=== PATIENT | male | born 1935 | race Caucasian/White ===

== ENCOUNTER → 2018-08-22 | Outpatient (CLI) | payer MEDICARE ==
[~2018-08-22] MED LIST: ASCO125T PO; ASPI-1236 PO; BETA10003 PO; BUTA1CAP2; DUTA0.5C2 PO; ERGO400T3 PO; LIDOCAINE HCL 1% 20ML VIAL (Pyxis) INJ ONE; LORA10TA PO; OMEG500C PO; PREG50CA PO; PRIM50TA PO; SELE200T26 PO; SIMV20TA2 PO; TAMS-11 PO; TOPXL5 PO; UBID100T7 PO; VALS80TA2 PO; VIC; VITA-290 PO; VITAMIN E PO; ZINC50TA62 PO; [UNRECOGNIZED DRUG - CODE] PO
== END | disposition home or self-care (01) ==
LOC: NM 08:20
PROVIDERS: ATTEND Neurological Surgery
DX: R51 Headache (principal); I10 Essential (primary) hypertension; E78.5 Hyperlipidemia, unspecified
CPT/HCPCS: 62270; 77003; 78630; A9548; J3490

== ENCOUNTER 2018-10-24 12:35 | Inpatient (IN) | payer MEDICARE ==
[~2018-10-24] VITALS: Ht 175.3 cm; Wt 80.7 kg
[~2018-10-24 12:35] MED LIST changes: -LIDOCAINE HCL 1% 20ML VIAL (Pyxis) INJ ONE
[2018-10-24] MEDS ORDERED: SODIUM CHLORIDE 0.9% 1,000 ML IV ONE (14:06)
[2018-10-24 14:58] LABS: BASOPHILS % 0.3 % (0.0-2.0); EOSINOPHILS % 2.2 % (0.0-5.0); HEMATOCRIT. 43.6 % (42.0-52.0); HEMOGLOBIN. 15.1 g/dL (14.0-18.0); MEAN CORPUSCULAR HEMOGLOBIN 32.1 pg (28.0-32.0); MEAN CORPUSCULAR VOLUME 92.7 fL (80.0-94.0); MEAN PLATELET VOLUME 7.3 fl (7.4-10.4); NEUTROPHILS % 66.5 % (40.0-76.0); PLATELET 142 x1000/uL (130-400); RED CELL DISTRIBUTION WIDTH 13.3 % (11.6-14.6)
[2018-10-24 15:03] LABS: CHLORIDE 107 mEq/L (98-107)
[2018-10-24 15:04] LABS: PARTIAL THROMBOPLASTIN TIME 26.9 sec (23.4-31.0); PROTHROMBIN TIME 10.5 sec (9.1-11.1)
[2018-10-24] MEDS ORDERED: DEXT 5%/LACTATED RINGERS 1,000 ML IV SCH (16:45)
[2018-10-24] MEDS ORDERED: HYDROCODONE/ACETAMINOPHEN 5/325MG TABLET PO ONE (17:15)
[2018-10-24 18:40] LABS: CLARITY URINE CLEAR (CLEAR); COLOR URINE YELLOW (YELLOW); KETONES URINE NEGATIVE (NEGATIVE); LEUKOCYTE ESTERASE URINE 1+ (NEGATIVE); NITRITE URINE NEGATIVE (NEGATIVE); OCCULT BLOOD URINE NEGATIVE (NEGATIVE); PROTEIN URINE NEGATIVE (NEGATIVE); SPECIFIC GRAVITY URINE 1.018 (1.005-1.030); UROBILINOGEN URINE 0.2 E.U./dL (0.2-1.0)
[2018-10-25] VITALS (84 sets, daily range): BP systolic 89–190; BP diastolic 39–127
[2018-10-25] MEDS ORDERED: METOPROLOL TARTRATE 50MG TABLET PO SCH ×2 (00:06→09:00)
[2018-10-25] MEDS: DEXT 5%/0.45% NACL 1000ML 1,000 ML IV SCH ×2 (03:22→13:10)
[2018-10-25] MEDS ORDERED: BACITRACIN 15GM TUBE TOP ONE ×2 (06:31→09:33)
[2018-10-25] MEDS ORDERED: POVIDONE-IODINE OINT 28.4GM TOP ONE (06:31)
[2018-10-25] MEDS ORDERED: GELATIN SPONGE,ABSORBABLE 12-7MM SPONGE ONE (06:31)
[2018-10-25] MEDS ORDERED: THROMBIN (BOVINE) 5000 UNITS/VIAL TOP ONE (06:32)
[2018-10-25] MEDS ORDERED: LIDOCAINE HCL/EPINEPHRINE 1%-EPI 1:100,000 20 ML VIAL ONE (06:32)
[2018-10-25] MEDS ORDERED: BACITRACIN 50,000 UNITS/VIAL ONE (06:33)
[2018-10-25] MEDS ORDERED: ROCURONIUM BROMIDE 10MG/ML VIAL 5ML IV ONE ×2 (06:52→08:47)
[2018-10-25] MEDS ORDERED: FENTANYL CITRATE/PF 50MCG/ML 2ML VIAL ONE ×2 (06:52→08:42)
[2018-10-25] MEDS ORDERED: PROPOFOL 200MG/20ML VIAL IV ONE ×3 (06:52→09:16)
[2018-10-25] MEDS ORDERED: PHENYLEPHRINE HCL 10 MG/ML 1ML (IV VIAL) IV ONE (06:57)
[2018-10-25] MEDS ORDERED: LEVETIRACETAM 500 MG in SODIUM CHLORIDE 0.9% 100 ML IV SCH (07:30)
[2018-10-25] MEDS ORDERED: GLYCOPYRROLATE 0.2 MG/ML 2ML VIAL ONE ×2 (08:36→09:58)
[2018-10-25] MEDS ORDERED: ASPIRIN 81MG TABLET PO SCH (09:00)
[2018-10-25] MEDS: CARBIDOPA/LEVODOPA 25/100MG TABLET CR PO SCH ×3 (10:00→17:00)
[2018-10-25] MEDS: LOSARTAN POTASSIUM 25 MG TABLET PO SCH (10:00)
[2018-10-25] MEDS: DONEPEZIL HCL 10MG TABLET PO SCH (10:00)
[2018-10-25] MEDS: PRIMIDONE 50MG TABLET PO SCH (10:00)
[2018-10-25] MEDS: DUTASTERIDE 0.5MG CAPSULE PO SCH (10:00)
[2018-10-25] MEDS: NICARDIPINE 100 MG in SODIUM CHLORIDE 0.9% 60 ML IV PRN (10:38)
[2018-10-25] MEDS: MORPHINE SULFATE 4 MG/ML CPJ (NOT FOR IM USE) IV PRN ×4 (10:41→22:05)
[2018-10-25] MEDS: CEFAZOLIN 1000MG PREMIX 50 ML IV SCH ×2 (13:06→23:16)
[2018-10-25] MEDS ORDERED: CEFAZOLIN SODIUM 1000MG/VIAL IV SCH (14:00)
[2018-10-25] MEDS ORDERED: FAMOTIDINE 20MG/2ML VIAL IV NR (16:30)
[2018-10-25 16:45] LABS: HEMATOCRIT 39.8 % (42.0-52.0); HEMOGLOBIN 13.7 g/dL (14.0-18.0); MEAN CORPUSCULAR HEMOGLOBIN 31.4 pg (28.0-32.0); MEAN CORPUSCULAR VOLUME 91.5 fL (80.0-94.0); PLATELET 129 x1000/uL (130-400); RED BLOOD CELL COUNT 4.35 mill/uL (4.7-6.1); RED CELL DISTRIBUTION WIDTH 13.4 % (11.6-14.6)
[2018-10-25 17:04] LABS: BG BASE EXCESS -3.2 mmol/L (-2.0-2.0); BG CARBOXYHEMOGLOBIN 1.5 % (0.5-1.5); BG DEOXYHEMOGLOBIN 5.3 % (0.0-5.0); BG FRACTION INSPIRED OXYGEN 21; BG HCO3 ACT 21.8 mmol/L (22.0-26.0); BG METHEMOGLOBIN 0.2 % (0.0-1.5); BG OXYGEN SATURATION 94.6 % (92.0-98.5); BG PH 7.365 (7.350-7.450); BG PO2 73.8 mmHg (75.0-100.0); BG SAMPLE SITE A-LINE; BG VENT MODE ROOM AIR
[2018-10-25 17:06] LABS: CHLORIDE 110 mEq/L (98-107)
[2018-10-25 17:11] LABS: PHOSPHORUS 3.9 mg/dL (2.5-4.9)
[2018-10-25] MEDS: PRAMIPEXOLE DI-HCL 0.25MG TABLET PO SCH (20:07)
[2018-10-25] MEDS: ATORVASTATIN CALCIUM 20MG TABLET PO SCH (20:07)
[2018-10-25] MEDS: LEVETIRACETAM 500 MG in SODIUM CHLORIDE 0.9% 100 ML IV SCH (21:58)
[2018-10-25] MEDS: HYDRALAZINE HCL 50MG TABLET PO SCH (22:00)
[2018-10-26] VITALS (98 sets, daily range): BP systolic 88–178; BP diastolic 36–118
[2018-10-26] MEDS: NICARDIPINE 100 MG in SODIUM CHLORIDE 0.9% 60 ML IV PRN ×2 (04:13→17:42)
[2018-10-26] MEDS: HYDRALAZINE HCL 50MG TABLET PO SCH ×3 (05:45→22:12)
[2018-10-26] MEDS: CEFAZOLIN 1000MG PREMIX 50 ML IV SCH ×3 (05:45→22:13)
[2018-10-26 05:59] LABS: HEMATOCRIT 41.9 % (42.0-52.0); HEMOGLOBIN 14.5 g/dL (14.0-18.0); MEAN CORPUSCULAR HEMOGLOBIN 31.9 pg (28.0-32.0); PLATELET 135 x1000/uL (130-400); RED BLOOD CELL COUNT 4.55 mill/uL (4.7-6.1); RED CELL DISTRIBUTION WIDTH 13.2 % (11.6-14.6)
[2018-10-26 06:04] LABS: CHLORIDE 107 mEq/L (98-107)
[2018-10-26] MEDS: DEXT 5%/0.45% NACL 1000ML 1,000 ML IV SCH (06:07)
[2018-10-26] MEDS: PRIMIDONE 50MG TABLET PO SCH ×2 (09:00→13:38)
[2018-10-26] MEDS: DUTASTERIDE 0.5MG CAPSULE PO SCH ×2 (09:00→13:38)
[2018-10-26] MEDS: LOSARTAN POTASSIUM 25 MG TABLET PO SCH ×2 (09:00→13:37)
[2018-10-26] MEDS: FAMOTIDINE 20MG/2ML VIAL IV SCH (09:40)
[2018-10-26] MEDS: LEVETIRACETAM 500 MG in SODIUM CHLORIDE 0.9% 100 ML IV SCH ×2 (09:40→20:46)
[2018-10-26] MEDS: ONDANSETRON HCL 4MG/2ML INJ IV PRN (09:41)
[2018-10-26] MEDS: MORPHINE SULFATE 4 MG/ML CPJ (NOT FOR IM USE) IV PRN (11:31)
[2018-10-26] MEDS ORDERED: AMLODIPINE 5MG TABLET PO SCH (13:15)
[2018-10-26 16:09] LABS: *AMPHETAMINES SCREEN URINE NEGATIVE (NEGATIVE); *BARBITURATES SCREEN URINE PRESUMTIVE POSITIVE (NEGATIVE); *BENZODIAZEPINES SCREEN URINE NEGATIVE (NEGATIVE); *COCAINE SCREEN URINE NEGATIVE (NEGATIVE); METHADONE URINE SCREEN NEGATIVE (NEGATIVE)
[2018-10-26 16:10] LABS: CANNABINOID URINE SCREEN NEGATIVE (NEGATIVE); OPIATES URINE SCREEN PRESUMTIVE POSITIVE (NEGATIVE); PHENCYCLIDINE URINE SCREEN NEGATIVE (NEGATIVE)
[2018-10-26] MEDS: METOPROLOL TARTRATE 25MG TABLET PO SCH ×2 (17:40→20:46)
[2018-10-26] MEDS: CARBIDOPA/LEVODOPA 25/100MG TABLET CR PO SCH (17:40)
[2018-10-26] MEDS ORDERED: ACETAMINOPHEN 325MG TABLET PO PRN (18:30)
[2018-10-26] MEDS: LACTULOSE 20G/30ML UDC PO PRN (18:47)
[2018-10-26] MEDS: ATORVASTATIN CALCIUM 20MG TABLET PO SCH (20:45)
[2018-10-27] VITALS (97 sets, daily range): BP systolic 111–179; BP diastolic 24–131
[2018-10-27] MEDS: DEXT 5%/0.45% NACL 1000ML 1,000 ML IV SCH (01:28)
[2018-10-27 05:39] LABS: CHLORIDE 107 mEq/L (98-107)
[2018-10-27 05:48] LABS: CREATINE KINASE MB FRACTION 1.1 ng/mL (0.5-3.6)
[2018-10-27 05:51] LABS: LDL CHOLESTEROL 74 mg/dL (5-100)
[2018-10-27 05:52] LABS: CREATINE KINASE 90 IU/L (39-308); HDL CHOLESTEROL 50 mg/dL (40-59)
[2018-10-27 06:08] LABS: HEMATOCRIT. 41.7 % (42.0-52.0); HEMOGLOBIN. 14.6 g/dL (14.0-18.0); MEAN CORPUSCULAR HEMOGLOBIN 32.2 pg (28.0-32.0); MEAN CORPUSCULAR VOLUME 92.1 fL (80.0-94.0); MEAN PLATELET VOLUME 7.5 fl (7.4-10.4); PLATELET 136 x1000/uL (130-400); RED BLOOD CELL COUNT 4.53 mill/uL (4.7-6.1); RED CELL DISTRIBUTION WIDTH 13.3 % (11.6-14.6)
[2018-10-27] MEDS: HYDRALAZINE HCL 50MG TABLET PO SCH ×3 (06:59→22:35)
[2018-10-27] MEDS: CEFAZOLIN 1000MG PREMIX 50 ML IV SCH (06:59)
[2018-10-27] MEDS: NICARDIPINE 100 MG in SODIUM CHLORIDE 0.9% 60 ML IV PRN ×2 (08:53→17:23)
[2018-10-27] MEDS ORDERED: AMLODIPINE 5MG TABLET PO SCH ×2 (09:00→10:45)
[2018-10-27] MEDS: FAMOTIDINE 20MG/2ML VIAL IV SCH (09:32)
[2018-10-27] MEDS: LEVETIRACETAM 500 MG in SODIUM CHLORIDE 0.9% 100 ML IV SCH ×2 (09:32→22:34)
[2018-10-27] MEDS: DUTASTERIDE 0.5MG CAPSULE PO SCH (09:32)
[2018-10-27] MEDS: PRIMIDONE 50MG TABLET PO SCH (09:33)
[2018-10-27] MEDS: DONEPEZIL HCL 10MG TABLET PO SCH (09:33)
[2018-10-27] MEDS: CARBIDOPA/LEVODOPA 25/100MG TABLET CR PO SCH ×3 (09:33→17:30)
[2018-10-27] MEDS: LOSARTAN POTASSIUM 25 MG TABLET PO SCH ×2 (09:34→22:34)
[2018-10-27] MEDS: METOPROLOL TARTRATE 25MG TABLET PO SCH ×2 (09:34→22:35)
[2018-10-27 10:05] LABS: ATYPICAL LYMPHOCYTES 1; PLATELET ESTIMATE NORMAL
[2018-10-27] MEDS ORDERED: LOSARTAN POTASSIUM 25 MG TABLET PO SCH (10:45)
[2018-10-27] MEDS: ATORVASTATIN CALCIUM 20MG TABLET PO SCH (22:34)
[2018-10-27] MEDS: PRAMIPEXOLE DI-HCL 0.25MG TABLET PO SCH ×2 (22:36→22:38)
[2018-10-27] MEDS: AMLODIPINE 5MG TABLET PO SCH (22:36)
[2018-10-28] VITALS (80 sets, daily range): BP systolic 31–166; BP diastolic 21–100
[2018-10-28 05:35] LABS: BASOPHILS % 0.2 % (0.0-2.0); EOSINOPHILS % 0.8 % (0.0-5.0); HEMATOCRIT. 41.1 % (42.0-52.0); HEMOGLOBIN. 14.4 g/dL (14.0-18.0); LYMPHOCYTES % 10.6 % (20.0-50.0); MEAN CORPUSCULAR HEMOGLOBIN 32.4 pg (28.0-32.0); MEAN CORPUSCULAR VOLUME 92.7 fL (80.0-94.0); MEAN PLATELET VOLUME 7.5 fl (7.4-10.4); NEUTROPHILS % 77.4 % (40.0-76.0); PLATELET 148 x1000/uL (130-400); RED BLOOD CELL COUNT 4.43 mill/uL (4.7-6.1); RED CELL DISTRIBUTION WIDTH 13.4 % (11.6-14.6)
[2018-10-28 05:50] LABS: CHLORIDE 108 mEq/L (98-107)
[2018-10-28] MEDS: NICARDIPINE 100 MG in SODIUM CHLORIDE 0.9% 60 ML IV PRN (05:51)
[2018-10-28] MEDS: HYDRALAZINE HCL 50MG TABLET PO SCH ×3 (05:51→21:49)
[2018-10-28] MEDS: DUTASTERIDE 0.5MG CAPSULE PO SCH (08:10)
[2018-10-28] MEDS: CARBIDOPA/LEVODOPA 25/100MG TABLET CR PO SCH ×3 (08:10→18:00)
[2018-10-28] MEDS: FAMOTIDINE 20MG/2ML VIAL IV SCH (08:10)
[2018-10-28] MEDS: DONEPEZIL HCL 10MG TABLET PO SCH (08:10)
[2018-10-28] MEDS: PRIMIDONE 50MG TABLET PO SCH (08:10)
[2018-10-28] MEDS: LOSARTAN POTASSIUM 25 MG TABLET PO SCH ×2 (08:11→20:25)
[2018-10-28] MEDS: AMLODIPINE 5MG TABLET PO SCH ×2 (08:11→20:25)
[2018-10-28] MEDS: METOPROLOL TARTRATE 25MG TABLET PO SCH ×2 (08:11→20:25)
[2018-10-28] MEDS: LEVETIRACETAM 500 MG in SODIUM CHLORIDE 0.9% 100 ML IV SCH ×2 (08:12→20:42)
[2018-10-28] MEDS: HYDROCODONE/ACETAMINOPHEN 10/325MG TABLET PO PRN (08:48)
[2018-10-28] MEDS ORDERED: CLONIDINE 0.1MG TABLET PO PRN ×2 (15:48→19:30)
[2018-10-28] MEDS: ATORVASTATIN CALCIUM 20MG TABLET PO SCH (20:25)
[2018-10-28] MEDS: PRAMIPEXOLE DI-HCL 0.25MG TABLET PO SCH (20:25)
[2018-10-28] MEDS: LACTULOSE 20G/30ML UDC PO PRN (20:25)
[2018-10-29] VITALS (98 sets, daily range): BP systolic 112–177; BP diastolic 50–106
[2018-10-29] MEDS: HYDROCODONE/ACETAMINOPHEN 10/325MG TABLET PO PRN (04:48)
[2018-10-29] MEDS: HYDRALAZINE HCL 50MG TABLET PO SCH ×3 (05:02→21:39)
[2018-10-29 05:29] LABS: BASOPHILS % 0.3 % (0.0-2.0); EOSINOPHILS % 0.9 % (0.0-5.0); HEMATOCRIT. 42.3 % (42.0-52.0); HEMOGLOBIN. 14.6 g/dL (14.0-18.0); LYMPHOCYTES % 9.6 % (20.0-50.0); MEAN CORPUSCULAR HEMOGLOBIN 32.1 pg (28.0-32.0); MEAN CORPUSCULAR VOLUME 92.7 fL (80.0-94.0); MEAN PLATELET VOLUME 7.4 fl (7.4-10.4); MONOCYTES % 10.5 % (2.0-8.0); NEUTROPHILS % 78.7 % (40.0-76.0); PLATELET 175 x1000/uL (130-400); RED BLOOD CELL COUNT 4.57 mill/uL (4.7-6.1); RED CELL DISTRIBUTION WIDTH 13.1 % (11.6-14.6)
[2018-10-29] MEDS: NICARDIPINE 100 MG in SODIUM CHLORIDE 0.9% 60 ML IV PRN ×2 (06:08→15:54)
[2018-10-29 06:11] LABS: CHLORIDE 105 mEq/L (98-107)
[2018-10-29] MEDS: DUTASTERIDE 0.5MG CAPSULE PO SCH (08:44)
[2018-10-29] MEDS: LEVETIRACETAM 500 MG in SODIUM CHLORIDE 0.9% 100 ML IV SCH ×2 (08:44→20:46)
[2018-10-29] MEDS: LOSARTAN POTASSIUM 25 MG TABLET PO SCH ×2 (08:44→20:46)
[2018-10-29] MEDS: FAMOTIDINE 20MG/2ML VIAL IV SCH (08:44)
[2018-10-29] MEDS: DONEPEZIL HCL 10MG TABLET PO SCH (08:44)
[2018-10-29] MEDS: AMLODIPINE 5MG TABLET PO SCH ×2 (08:45→20:47)
[2018-10-29] MEDS: PRIMIDONE 50MG TABLET PO SCH (08:45)
[2018-10-29] MEDS: METOPROLOL TARTRATE 25MG TABLET PO SCH ×2 (08:45→20:47)
[2018-10-29] MEDS: CARBIDOPA/LEVODOPA 25/100MG TABLET CR PO SCH ×3 (08:56→16:32)
[2018-10-29] MEDS: PRAMIPEXOLE DI-HCL 0.25MG TABLET PO SCH (20:47)
[2018-10-29] MEDS: ATORVASTATIN CALCIUM 20MG TABLET PO SCH (20:47)
[2018-10-30] VITALS (101 sets, daily range): BP systolic 117–186; BP diastolic 31–99
[2018-10-30] MEDS: NICARDIPINE 100 MG in SODIUM CHLORIDE 0.9% 60 ML IV PRN (04:54)
[2018-10-30] MEDS: HYDRALAZINE HCL 50MG TABLET PO SCH ×3 (05:30→22:57)
[2018-10-30] MEDS: LEVETIRACETAM 500 MG in SODIUM CHLORIDE 0.9% 100 ML IV SCH (09:05)
[2018-10-30] MEDS: METOPROLOL TARTRATE 25MG TABLET PO SCH ×2 (09:05→21:13)
[2018-10-30] MEDS: FAMOTIDINE 20MG/2ML VIAL IV SCH (09:05)
[2018-10-30] MEDS: DONEPEZIL HCL 10MG TABLET PO SCH (09:06)
[2018-10-30] MEDS: LOSARTAN POTASSIUM 25 MG TABLET PO SCH ×2 (09:06→21:14)
[2018-10-30] MEDS: DUTASTERIDE 0.5MG CAPSULE PO SCH (09:06)
[2018-10-30] MEDS: PRIMIDONE 50MG TABLET PO SCH (09:07)
[2018-10-30] MEDS: AMLODIPINE 5MG TABLET PO SCH ×2 (09:07→21:13)
[2018-10-30] MEDS: CARBIDOPA/LEVODOPA 25/100MG TABLET CR PO SCH ×3 (09:08→18:43)
[2018-10-30] MEDS ORDERED: CLONIDINE 0.2MG TABLET PO SCH (13:30)
[2018-10-30] MEDS: CLONIDINE 0.1MG TABLET PO SCH (18:43)
[2018-10-30] MEDS ORDERED: LEVETIRACETAM 250 MG in SODIUM CHLORIDE 0.9% 100 ML IV SCH (21:00)
[2018-10-30] MEDS: LEVETIRACETAM 250 MG in SODIUM CHLORIDE 0.9% 100 ML IV SCH (21:12)
[2018-10-30] MEDS: ATORVASTATIN CALCIUM 20MG TABLET PO SCH (21:12)
[2018-10-30] MEDS: PRAMIPEXOLE DI-HCL 0.25MG TABLET PO SCH (21:13)
[2018-10-31] VITALS (87 sets, daily range): BP systolic 97–178; BP diastolic 53–151
[2018-10-31] MEDS: NICARDIPINE 100 MG in SODIUM CHLORIDE 0.9% 60 ML IV PRN (05:40)
[2018-10-31 05:57] LABS: HEMATOCRIT 42.1 % (42.0-52.0); HEMOGLOBIN 14.5 g/dL (14.0-18.0); MEAN CORPUSCULAR VOLUME 92.8 fL (80.0-94.0); PLATELET 180 x1000/uL (130-400); RED BLOOD CELL COUNT 4.54 mill/uL (4.7-6.1); RED CELL DISTRIBUTION WIDTH 12.8 % (11.6-14.6)
[2018-10-31] MEDS: HYDRALAZINE HCL 50MG TABLET PO SCH (05:57)
[2018-10-31 06:51] LABS: CHLORIDE 109 mEq/L (98-107)
[2018-10-31] MEDS: LOSARTAN POTASSIUM 25 MG TABLET PO SCH ×2 (09:19→21:11)
[2018-10-31] MEDS: LEVETIRACETAM 250 MG in SODIUM CHLORIDE 0.9% 100 ML IV SCH (09:19)
[2018-10-31] MEDS: FAMOTIDINE 20MG/2ML VIAL IV SCH (09:19)
[2018-10-31] MEDS: DUTASTERIDE 0.5MG CAPSULE PO SCH (09:20)
[2018-10-31] MEDS: DONEPEZIL HCL 10MG TABLET PO SCH (09:20)
[2018-10-31] MEDS: METOPROLOL TARTRATE 25MG TABLET PO SCH ×2 (09:20→21:11)
[2018-10-31] MEDS: CLONIDINE 0.1MG TABLET PO SCH ×2 (09:21→17:47)
[2018-10-31] MEDS: AMLODIPINE 5MG TABLET PO SCH ×2 (09:21→21:10)
[2018-10-31] MEDS: CARBIDOPA/LEVODOPA 25/100MG TABLET CR PO SCH ×3 (09:21→17:48)
[2018-10-31] MEDS ORDERED: POTASSIUM CHLORIDE 20MEQ/PACKET PO NR (12:15)
[2018-10-31] MEDS: SODIUM CHLORIDE 0.45% 1,000 ML IV SCH (14:19)
[2018-10-31] MEDS: HYDRALAZINE HCL 100MG TABLET PO SCH ×2 (14:21→22:00)
[2018-10-31] MEDS: ONDANSETRON HCL 4MG/2ML INJ IV PRN (20:29)
[2018-10-31] MEDS: PRAMIPEXOLE DI-HCL 0.25MG TABLET PO SCH (21:10)
[2018-10-31] MEDS: ATORVASTATIN CALCIUM 20MG TABLET PO SCH (21:10)
[2018-10-31] MEDS: LEVETIRACETAM 250MG TABLET PO SCH (21:11)
[2018-11-01] VITALS (7 sets, daily range): BP systolic 109–160; BP diastolic 60–85
[2018-11-01] MEDS: HYDRALAZINE HCL 100MG TABLET PO SCH ×3 (05:30→22:12)
[2018-11-01] MEDS: SODIUM CHLORIDE 0.45% 1,000 ML IV SCH (08:15)
[2018-11-01] MEDS: CLONIDINE 0.1MG TABLET PO SCH ×2 (08:38→17:42)
[2018-11-01] MEDS: LEVETIRACETAM 250MG TABLET PO SCH ×2 (08:38→20:41)
[2018-11-01] MEDS: LOSARTAN POTASSIUM 25 MG TABLET PO SCH ×2 (08:38→20:49)
[2018-11-01] MEDS: METOPROLOL TARTRATE 25MG TABLET PO SCH ×2 (08:38→20:42)
[2018-11-01] MEDS: DUTASTERIDE 0.5MG CAPSULE PO SCH (08:38)
[2018-11-01] MEDS: DONEPEZIL HCL 10MG TABLET PO SCH (08:39)
[2018-11-01] MEDS: FAMOTIDINE 20MG/2ML VIAL IV SCH (08:39)
[2018-11-01] MEDS: AMLODIPINE 5MG TABLET PO SCH ×2 (08:39→20:42)
[2018-11-01] MEDS: CARBIDOPA/LEVODOPA 25/100MG TABLET CR PO SCH ×3 (09:00→17:42)
[2018-11-01 10:46] LABS: HEMATOCRIT 42.5 % (42.0-52.0); HEMOGLOBIN 14.6 g/dL (14.0-18.0); MEAN CORPUSCULAR HEMOGLOBIN 31.5 pg (28.0-32.0); MEAN CORPUSCULAR VOLUME 91.9 fL (80.0-94.0); PLATELET 195 x1000/uL (130-400); RED BLOOD CELL COUNT 4.62 mill/uL (4.7-6.1); RED CELL DISTRIBUTION WIDTH 13.1 % (11.6-14.6)
[2018-11-01 11:03] LABS: CHLORIDE 108 mEq/L (98-107)
[2018-11-01] MEDS: PRAMIPEXOLE DI-HCL 0.25MG TABLET PO SCH (20:41)
[2018-11-01] MEDS: ATORVASTATIN CALCIUM 20MG TABLET PO SCH (20:42)
[2018-11-02] VITALS: BP 114/62
[2018-11-02 04:00] VITALS: BP 119/86
[2018-11-02] MEDS: HYDRALAZINE HCL 100MG TABLET PO SCH ×3 (06:33→22:00)
[2018-11-02] MEDS: AMLODIPINE 5MG TABLET PO SCH ×2 (08:17→21:00)
[2018-11-02] MEDS: LOSARTAN POTASSIUM 25 MG TABLET PO SCH ×2 (08:17→21:00)
[2018-11-02] MEDS: CLONIDINE 0.1MG TABLET PO SCH ×2 (08:17→16:14)
[2018-11-02] MEDS: METOPROLOL TARTRATE 25MG TABLET PO SCH ×2 (08:17→21:00)
[2018-11-02] MEDS: DONEPEZIL HCL 10MG TABLET PO SCH (08:17)
[2018-11-02] MEDS: FAMOTIDINE 20MG/2ML VIAL IV SCH (08:17)
[2018-11-02] MEDS: LEVETIRACETAM 250MG TABLET PO SCH ×2 (08:17→21:42)
[2018-11-02] MEDS: DUTASTERIDE 0.5MG CAPSULE PO SCH (08:20)
[2018-11-02] MEDS: CARBIDOPA/LEVODOPA 25/100MG TABLET CR PO SCH ×3 (08:43→19:16)
[2018-11-02 12:00] VITALS: BP 123/71
[2018-11-02 15:47] VITALS: BP 112/67
[2018-11-02 20:00] VITALS: BP 102/59
[2018-11-02] MEDS: ATORVASTATIN CALCIUM 20MG TABLET PO SCH (21:42)
[2018-11-02] MEDS: PRAMIPEXOLE DI-HCL 0.25MG TABLET PO SCH (21:42)
[2018-11-03] VITALS (7 sets, daily range): BP systolic 123–165; BP diastolic 61–82
[2018-11-03] MEDS: HYDRALAZINE HCL 100MG TABLET PO SCH ×2 (06:25→14:50)
[2018-11-03] MEDS: FAMOTIDINE 20MG/2ML VIAL IV SCH (09:00)
[2018-11-03] MEDS: CLONIDINE 0.1MG TABLET PO SCH ×2 (09:00→17:13)
[2018-11-03] MEDS: DONEPEZIL HCL 10MG TABLET PO SCH (09:59)
[2018-11-03] MEDS: METOPROLOL TARTRATE 25MG TABLET PO SCH (10:00)
[2018-11-03] MEDS: LOSARTAN POTASSIUM 25 MG TABLET PO SCH (10:00)
[2018-11-03] MEDS: DUTASTERIDE 0.5MG CAPSULE PO SCH (10:01)
[2018-11-03] MEDS: AMLODIPINE 5MG TABLET PO SCH (10:02)
[2018-11-03] MEDS: CARBIDOPA/LEVODOPA 25/100MG TABLET CR PO SCH ×3 (10:03→17:12)
[2018-11-03] MEDS: LEVETIRACETAM 250MG TABLET PO SCH (10:04)
== END 2018-11-03 18:00 | DRG 25 ==
LOC: ER 12:35 → EDBEDREQTM 15:05 → 6WST 16:22 → EDBEDREQ 16:34 → EDBEDREQTM 16:34 → ENRESERV 18:33 → MICUNO 10-25 09:27 → 6EST 11-01 01:08
PROVIDERS: ADMIT Internal Medicine; ATTEND Internal Medicine
PROC: 00163J6 Bypass Cerebral Ventricle to Peritoneal Cavity with Synthetic Substitute, Percutaneous Approach (ICD-10-PCS; principal; 2018-10-30)
PROC: 00H633Z Insertion of Infusion Device into Cerebral Ventricle, Percutaneous Approach (ICD-10-PCS; 2018-10-30)
DX: G91.0 Communicating hydrocephalus (principal); I50.33 Acute on chronic diastolic (congestive) heart failure; N39.0 Urinary tract infection, site not specified; G93.49 Other encephalopathy; G91.2 (Idiopathic) normal pressure hydrocephalus; E78.5 Hyperlipidemia, unspecified; R73.9 Hyperglycemia, unspecified; R41.3 Other amnesia; I44.0 Atrioventricular block, first degree; I27.20 Pulmonary hypertension, unspecified; K21.9 Gastro-esophageal reflux disease without esophagitis; I35.1 Nonrheumatic aortic (valve) insufficiency; E78.00 Pure hypercholesterolemia, unspecified; R00.1 Bradycardia, unspecified; G20 Parkinson's disease; G89.29 Other chronic pain; M54.2 Cervicalgia; F02.80 Dementia in other diseases classified elsewhere, unspecified severity, without behavioral disturbance, psychotic disturbance, mood disturbance, and anxiety; I11.0 Hypertensive heart disease with heart failure; Z96.653 Presence of artificial knee joint, bilateral; Z79.82 Long term (current) use of aspirin; Z79.899 Other long term (current) drug therapy; Z78.1 Physical restraint status
CPT/HCPCS: 36415; 36600; 71045; 74018; 80048; 80061; 80305; 82375; 82550; 82553; 82805; 83036; 83735; 83880; 84100; 84153; 84443; 84484; 85027; 93005; 93306; 93970; 96360; 97162; 97166; 97530; 99285; C1750; J0690; J1953; J2270; J2370; J2405; J2704; J3010; J3490; J7030; J7050; G0103

== ENCOUNTER 2018-11-13 11:44 | Emergency (ER) | payer MEDICARE ==
[~2018-11-13] VITALS: Ht 180.3 cm; Wt 79.0 kg
[2018-11-13 16:40] VITALS: BP 136/96
== END 2018-11-13 16:44 | disposition home or self-care (01) ==
LOC: ER 11:44
DX: R51 Headache (principal); M25.512 Pain in left shoulder; I10 Essential (primary) hypertension; W01.0XXA Fall on same level from slipping, tripping and stumbling without subsequent striking against object, initial encounter; Y93.89 Activity, other specified; Y92.89 Other specified places as the place of occurrence of the external cause; G31.9 Degenerative disease of nervous system, unspecified; Z98.2 Presence of cerebrospinal fluid drainage device
CPT/HCPCS: 99284

== ENCOUNTER 2019-06-02 22:27 | Emergency (ER) | payer MEDICARE, OTHER ==
[~2019-06-02] VITALS: Ht 185.4 cm; Wt 76.0 kg
[2019-06-03 01:21] LABS: CLARITY URINE TURBID (CLEAR); KETONES URINE TRACE (NEGATIVE); LEUKOCYTE ESTERASE URINE 3+ (NEGATIVE); NITRITE URINE POSITIVE (NEGATIVE); OCCULT BLOOD URINE 3+ (NEGATIVE); PH URINE 8.5 (4.5-8.0); PROTEIN URINE 3+ (NEGATIVE); SPECIFIC GRAVITY URINE 1.018 (1.005-1.030); UROBILINOGEN URINE 0.2 E.U./dL (0.2-1.0)
[2019-06-03 01:31] LABS: COLOR URINE BLOODY (YELLOW)
[2019-06-03] MEDS ORDERED: CEFTRIAXONE SODIUM 1 G/VIAL IM SCH (01:45)
[2019-06-03 04:21] VITALS: BP 137/77
== END 2019-06-03 04:19 | disposition home or self-care (01) ==
LOC: ER 22:27
DX: N39.0 Urinary tract infection, site not specified (principal); I10 Essential (primary) hypertension; F03.90 Unspecified dementia, unspecified severity, without behavioral disturbance, psychotic disturbance, mood disturbance, and anxiety; R31.9 Hematuria, unspecified; Z87.438 Personal history of other diseases of male genital organs; Z79.899 Other long term (current) drug therapy
CPT/HCPCS: 81003; 87077; 87086; 87186; 96372; 99283; J0696; A4315

== ENCOUNTER 2019-06-03 19:54 | Emergency (ER) | payer MEDICARE, OTHER ==
[~2019-06-03] VITALS: Ht 177.8 cm; Wt 76.0 kg
[2019-06-03] MEDS ORDERED: METOPROLOL TARTRATE 50MG TABLET PO ONE (22:15)
[2019-06-03 23:00] VITALS: BP 168/78
== END 2019-06-04 00:01 | disposition home or self-care (01) ==
LOC: ER 19:54
DX: N30.01 Acute cystitis with hematuria (principal)
CPT/HCPCS: 99283; A4315

== ENCOUNTER 2019-07-04 16:46 | Inpatient (IN) | payer MEDICARE ==
[~2019-07-04] VITALS: Ht 180.3 cm; Wt 88.0 kg
[2019-07-04] MEDS ORDERED: ONDANSETRON HCL 4MG/2ML INJ IV STA (18:14)
[2019-07-04 18:45] LABS: BASOPHILS % 1.2 % (0.0-2.0); EOSINOPHILS % 1.3 % (0.0-5.0); HEMOGLOBIN. 14.3 g/dL (14.0-18.0); MEAN CORPUSCULAR HEMOGLOBIN 32.4 pg (28.0-32.0); MEAN CORPUSCULAR VOLUME 92.8 fL (80.0-94.0); MEAN PLATELET VOLUME 7.9 fl (7.4-10.4); MONOCYTES % 8.5 % (2.0-8.0); PLATELET 144 x1000/uL (130-400); RED BLOOD CELL COUNT 4.41 mill/uL (4.7-6.1); RED CELL DISTRIBUTION WIDTH 12.7 % (11.6-14.6)
[2019-07-04 18:48] LABS: CHLORIDE 110 mEq/L (98-107)
[2019-07-04 18:50] LABS: PARTIAL THROMBOPLASTIN TIME 25.8 sec (23.4-31.0); PROTHROMBIN TIME 10.7 sec (9.6-11.0)
[2019-07-04 20:00] VITALS: BP 148/70
[2019-07-04 23:20] VITALS: BP 106/88
[2019-07-05] VITALS: BP_SYST 138; BP_SYST 140; BP_DIAS 68
[2019-07-05] MEDS ORDERED: HYDROCODONE/ACETAMINOPHEN 5/325MG TABLET PO PRN ×2 (02:15→14:30)
[2019-07-05 04:00] VITALS: BP 157/74
[2019-07-05] MEDS: CARBIDOPA/LEVODOPA 10/100MG TABLET PO SCH ×3 (06:29→16:29)
[2019-07-05 07:21] LABS: BASOPHILS % 0.5 % (0.0-2.0); EOSINOPHILS % 1.5 % (0.0-5.0); HEMATOCRIT. 39.5 % (42.0-52.0); HEMOGLOBIN. 13.8 g/dL (14.0-18.0); LYMPHOCYTES % 20.8 % (20.0-50.0); MEAN CORPUSCULAR HEMOGLOBIN 32.5 pg (28.0-32.0); MEAN CORPUSCULAR VOLUME 93.2 fL (80.0-94.0); MEAN PLATELET VOLUME 7.7 fl (7.4-10.4); MONOCYTES % 9.6 % (2.0-8.0); NEUTROPHILS % 67.6 % (40.0-76.0); PLATELET 137 x1000/uL (130-400); RED BLOOD CELL COUNT 4.24 mill/uL (4.7-6.1); RED CELL DISTRIBUTION WIDTH 13.1 % (11.6-14.6)
[2019-07-05] MEDS: ASPIRIN 81MG TABLET PO SCH (08:56)
[2019-07-05 09:10] LABS: CHLORIDE 109 mEq/L (98-107)
[2019-07-05 09:26] LABS: LDL CHOLESTEROL 72 mg/dL (5-100)
[2019-07-05 09:27] LABS: HDL CHOLESTEROL 29 mg/dL (40-59)
[2019-07-05] MEDS ORDERED: ONDANSETRON HCL 4MG/2ML INJ IV PRN (14:30)
[2019-07-05] MEDS ORDERED: DIPHENHYDRAMINE 50MG/ML VIAL IV PRN (14:30)
[2019-07-05] MEDS ORDERED: SODIUM CHLORIDE 0.45% 1,000 ML IV SCH (14:30)
[2019-07-05] MEDS ORDERED: LORAZEPAM 2MG/ML CPJ IV PRN (14:30)
[2019-07-05] MEDS ORDERED: LACTULOSE 20G/30ML UDC PO PRN (14:30)
[2019-07-05] MEDS ORDERED: HYDRALAZINE 20MG/ML VIAL IV PRN (14:30)
[2019-07-05 14:48] LABS: BG BASE EXCESS 0.6 mmol/L (-2.0-2.0); BG DEOXYHEMOGLOBIN 6.2 % (0.0-5.0); BG FRACTION INSPIRED OXYGEN 21; BG HCO3 ACT 24.7 mmol/L (22.0-26.0); BG METHEMOGLOBIN 0.1 % (0.0-1.5); BG OXYGEN SATURATION 93.7 % (92.0-98.5); BG OXYHEMOGLOBIN 92.7 % (94.0-97.0); BG PCO2 38.3 mmHg (35.0-45.0); BG PH 7.428 (7.350-7.450); BG PO2 67.3 mmHg (75.0-100.0); BG SAMPLE SITE RIGHT BRACHIAL; BG TOTAL HEMOGLOBIN 14.6 g/dL (12.0-18.0); BG VENT MODE ROOM AIR
[2019-07-05 16:00] VITALS: BP 138/68
[2019-07-05] MEDS: AMLODIPINE 5MG TABLET PO SCH ×2 (16:15→16:29)
[2019-07-05] MEDS: PIPERACILLIN/TAZOBACTAM 3.375 G in DEXT 5% WATER 100 ML IV SCH ×2 (16:47→22:07)
[2019-07-05 19:07] LABS: CLARITY URINE CLEAR (CLEAR); COLOR URINE YELLOW (YELLOW); KETONES URINE NEGATIVE (NEGATIVE); LEUKOCYTE ESTERASE URINE 1+ (NEGATIVE); NITRITE URINE NEGATIVE (NEGATIVE); OCCULT BLOOD URINE NEGATIVE (NEGATIVE); PH URINE 5.5 (4.5-8.0); PROTEIN URINE NEGATIVE (NEGATIVE); SPECIFIC GRAVITY URINE 1.017 (1.005-1.030); UROBILINOGEN URINE 0.2 E.U./dL (0.2-1.0)
[2019-07-05 20:00] VITALS: BP 121/60
[2019-07-06] VITALS: BP 126/61
[2019-07-06] MEDS: PIPERACILLIN/TAZOBACTAM 3.375 G in DEXT 5% WATER 100 ML IV SCH ×3 (03:47→16:00)
[2019-07-06 04:00] VITALS: BP 150/84
[2019-07-06] MEDS: CARBIDOPA/LEVODOPA 10/100MG TABLET PO SCH ×2 (05:31→14:00)
[2019-07-06 07:32] LABS: HEMATOCRIT 40.3 % (42.0-52.0); MEAN CORPUSCULAR HEMOGLOBIN 32.1 pg (28.0-32.0); MEAN CORPUSCULAR VOLUME 92.4 fL (80.0-94.0); PLATELET 145 x1000/uL (130-400); RED BLOOD CELL COUNT 4.37 mill/uL (4.7-6.1); RED CELL DISTRIBUTION WIDTH 13.3 % (11.6-14.6)
[2019-07-06 08:00] VITALS: BP 146/77
[2019-07-06] MEDS: ASPIRIN 81MG TABLET PO SCH (08:55)
[2019-07-06] MEDS: AMLODIPINE 5MG TABLET PO SCH (08:55)
[2019-07-06 12:00] VITALS: BP 138/78
[2019-07-06 14:48] VITALS: BP 138/78
[2019-07-06 16:00] VITALS: BP 116/83
== END 2019-07-06 19:20 | disposition home health service (06) | DRG 640 ==
LOC: ER 16:46 → 8WST 20:44 → EDBEDREQTM 20:45 → EDBEDREQ 20:45 → ENRESERV 22:30
PROVIDERS: ADMIT Internal Medicine; ATTEND Internal Medicine
DX: E86.0 Dehydration (principal); G92 Toxic encephalopathy; E44.1 Mild protein-calorie malnutrition; G81.94 Hemiplegia, unspecified affecting left nondominant side; D64.9 Anemia, unspecified; F02.80 Dementia in other diseases classified elsewhere, unspecified severity, without behavioral disturbance, psychotic disturbance, mood disturbance, and anxiety; G20 Parkinson's disease; Z98.2 Presence of cerebrospinal fluid drainage device; I10 Essential (primary) hypertension; E87.8 Other disorders of electrolyte and fluid balance, not elsewhere classified
CPT/HCPCS: 36415; 36600; 70551; 71045; 80048; 80061; 81003; 82140; 82375; 82805; 83605; 83880; 84443; 84484; 85027; 93005; 93880; 93970; 97163; 99285; J2543; J7060; A4315

== ENCOUNTER 2019-08-25 19:53 | Emergency (ER) | payer MEDICARE ==
[~2019-08-25] VITALS: Ht 175.3 cm; Wt 86.0 kg
[~2019-08-25 19:53] MED LIST changes: -ASPI-1236 PO; +ASPI-1488 PO
[2019-08-25 21:03] LABS: CLARITY URINE TURBID (CLEAR); COLOR URINE DARK YELLOW (YELLOW); KETONES URINE NEGATIVE (NEGATIVE); LEUKOCYTE ESTERASE URINE 3+ (NEGATIVE); NITRITE URINE POSITIVE (NEGATIVE); OCCULT BLOOD URINE 1+ (NEGATIVE); PH URINE >=9.0 (4.5-8.0); PROTEIN URINE 3+ (NEGATIVE); SPECIFIC GRAVITY URINE 1.017 (1.005-1.030); UROBILINOGEN URINE 0.2 E.U./dL (0.2-1.0)
[2019-08-25 22:30] VITALS: BP 136/83
== END 2019-08-25 20:22 | disposition home or self-care (01) ==
LOC: ER 19:53
DX: N39.0 Urinary tract infection, site not specified (principal); R30.0 Dysuria; F03.90 Unspecified dementia, unspecified severity, without behavioral disturbance, psychotic disturbance, mood disturbance, and anxiety; I10 Essential (primary) hypertension; Z79.82 Long term (current) use of aspirin; Z79.899 Other long term (current) drug therapy
CPT/HCPCS: 81003; 87077; 87186; 99283

== ENCOUNTER 2019-10-12 20:45 | Inpatient (IN) | payer MEDICARE ==
[~2019-10-12] VITALS: Ht 175.3 cm; Wt 76.7 kg
[2019-10-12] MEDS ORDERED: ACETAMINOPHEN 325MG TABLET PO STA (22:20)
[2019-10-12 23:08] LABS: BASOPHILS % 0.6 % (0.0-2.0); EOSINOPHILS % 1.9 % (0.0-5.0); HEMOGLOBIN. 13.7 g/dL (14.0-18.0); LYMPHOCYTES % 14.7 % (20.0-50.0); MEAN CORPUSCULAR HEMOGLOBIN 31.7 pg (28.0-32.0); MEAN CORPUSCULAR VOLUME 92.5 fL (80.0-94.0); MEAN PLATELET VOLUME 7.3 fl (7.4-10.4); NEUTROPHILS % 74.8 % (40.0-76.0); PLATELET 142 x1000/uL (130-400); RED BLOOD CELL COUNT 4.32 mill/uL (4.7-6.1); RED CELL DISTRIBUTION WIDTH 13.5 % (11.6-14.6)
[2019-10-12 23:15] LABS: CHLORIDE 108 mEq/L (98-107)
[2019-10-13 02:08] LABS: CLARITY URINE TURBID (CLEAR); COLOR URINE YELLOW (YELLOW); KETONES URINE NEGATIVE (NEGATIVE); LEUKOCYTE ESTERASE URINE 3+ (NEGATIVE); NITRITE URINE POSITIVE (NEGATIVE); OCCULT BLOOD URINE NEGATIVE (NEGATIVE); PH URINE >=9.0 (4.5-8.0); PROTEIN URINE 2+ (NEGATIVE); SPECIFIC GRAVITY URINE 1.017 (1.005-1.030); UROBILINOGEN URINE 0.2 E.U./dL (0.2-1.0)
[2019-10-13] MEDS ORDERED: CEFTRIAXONE 1 G PREMIX 50 ML IV NR (02:30)
[2019-10-13 06:54] VITALS: BP 134/65
[2019-10-13 08:00] VITALS: BP 112/70
[2019-10-13] MEDS ORDERED: DUTA0.5C2 MT (08:38)
[2019-10-13] MEDS ORDERED: CARB1TAB5 MT (08:38)
[2019-10-13] MEDS ORDERED: METO-539 MT (08:38)
[2019-10-13] MEDS ORDERED: PRIM50TA31 PO (08:38)
[2019-10-13] MEDS ORDERED: LOSA100T32 MT (08:38)
[2019-10-13] MEDS ORDERED: DONE10TA11 MT (08:38)
[2019-10-13] MEDS ORDERED: SIMV-43 MT (08:38)
[2019-10-13] MEDS ORDERED: ATOR20TA MT (08:41)
[2019-10-13] MEDS: LOSARTAN POTASSIUM 100 MG TABLET PO SCH (08:55)
[2019-10-13] MEDS: DUTASTERIDE 0.5MG CAPSULE PO SCH (08:55)
[2019-10-13] MEDS: CARBIDOPA/LEVODOPA 25/100MG TABLET CR PO SCH ×3 (08:56→21:58)
[2019-10-13] MEDS: ENOXAPARIN 40MG/0.4ML SYR SUBCUT SCH (08:56)
[2019-10-13] MEDS: METOPROLOL TARTRATE 25MG TABLET PO SCH ×2 (08:59→21:40)
[2019-10-13] MEDS ORDERED: DUTASTERIDE 0.5MG CAPSULE PO SCH (10:45)
[2019-10-13 12:00] VITALS: BP 131/67
[2019-10-13] MEDS ORDERED: CARBIDOPA/LEVODOPA 25/100MG TABLET PO SCH (14:00)
[2019-10-13] MEDS: CEFTRIAXONE 1 G PREMIX 50 ML IV SCH (14:54)
[2019-10-13 16:00] VITALS: BP 129/66
[2019-10-13] MEDS ORDERED: METOPROLOL TARTRATE 50MG TABLET PO SCH (19:00)
[2019-10-13 20:00] VITALS: BP 145/72
[2019-10-13] MEDS: PRIMIDONE 50MG TABLET PO SCH (21:39)
[2019-10-13] MEDS: ATORVASTATIN CALCIUM 20MG TABLET PO SCH (21:41)
[2019-10-13] MEDS: TAMSULOSIN HCL 0.4MG SR CAPSULE PO SCH (21:41)
[2019-10-13] MEDS: DONEPEZIL HCL 10MG TABLET PO SCH (21:41)
[2019-10-14] VITALS: BP 152/70
[2019-10-14] MEDS: CEFTRIAXONE 1 G PREMIX 50 ML IV SCH ×2 (02:38→14:08)
[2019-10-14 04:00] VITALS: BP 133/78
[2019-10-14] MEDS: CARBIDOPA/LEVODOPA 25/100MG TABLET CR PO SCH ×3 (06:06→21:17)
[2019-10-14 08:00] VITALS: BP 144/75
[2019-10-14] MEDS: METOPROLOL TARTRATE 25MG TABLET PO SCH ×2 (09:00→21:06)
[2019-10-14] MEDS: LOSARTAN POTASSIUM 100 MG TABLET PO SCH (09:00)
[2019-10-14] MEDS: DUTASTERIDE 0.5MG CAPSULE PO SCH (09:01)
[2019-10-14] MEDS: ENOXAPARIN 40MG/0.4ML SYR SUBCUT SCH (09:01)
[2019-10-14 12:00] VITALS: BP 136/68
[2019-10-14 16:00] VITALS: BP 130/69
[2019-10-14 20:00] VITALS: BP 120/75
[2019-10-14] MEDS: PRIMIDONE 50MG TABLET PO SCH (21:05)
[2019-10-14] MEDS: TAMSULOSIN HCL 0.4MG SR CAPSULE PO SCH (21:06)
[2019-10-14] MEDS: ATORVASTATIN CALCIUM 20MG TABLET PO SCH (21:06)
[2019-10-14] MEDS: DONEPEZIL HCL 10MG TABLET PO SCH (21:06)
[2019-10-15] VITALS: BP 152/69
[2019-10-15] MEDS: CEFTRIAXONE 1 G PREMIX 50 ML IV SCH ×2 (03:30→15:17)
[2019-10-15 04:00] VITALS: BP 141/69
[2019-10-15] MEDS: CARBIDOPA/LEVODOPA 25/100MG TABLET CR PO SCH ×2 (05:12→15:17)
[2019-10-15 07:00] LABS: BASOPHILS % 0.7 % (0.0-2.0); EOSINOPHILS % 2.1 % (0.0-5.0); HEMATOCRIT. 42.5 % (42.0-52.0); HEMOGLOBIN. 14.5 g/dL (14.0-18.0); LYMPHOCYTES % 16.6 % (20.0-50.0); MEAN CORPUSCULAR HEMOGLOBIN 31.4 pg (28.0-32.0); MEAN CORPUSCULAR VOLUME 91.9 fL (80.0-94.0); MEAN PLATELET VOLUME 7.7 fl (7.4-10.4); NEUTROPHILS % 70.6 % (40.0-76.0); PLATELET 147 x1000/uL (130-400); RED BLOOD CELL COUNT 4.63 mill/uL (4.7-6.1); RED CELL DISTRIBUTION WIDTH 13.4 % (11.6-14.6)
[2019-10-15 08:00] VITALS: BP 122/67
[2019-10-15] MEDS: DUTASTERIDE 0.5MG CAPSULE PO SCH (08:04)
[2019-10-15] MEDS: LOSARTAN POTASSIUM 100 MG TABLET PO SCH (08:05)
[2019-10-15] MEDS: METOPROLOL TARTRATE 25MG TABLET PO SCH (08:05)
[2019-10-15] MEDS: ENOXAPARIN 40MG/0.4ML SYR SUBCUT SCH (08:19)
[2019-10-15 08:20] LABS: CHLORIDE 107 mEq/L (98-107)
[2019-10-15 12:00] VITALS: BP 126/70
[2019-10-15] MEDS ORDERED: LEVO500T2 MT (13:39)
[2019-10-15 15:02] VITALS: BP 126/74
[2019-10-15 16:00] VITALS: BP 124/58
== END 2019-10-15 18:38 | disposition home or self-care (01) | DRG 683 ==
LOC: ER 20:45 → ENRESERV 10-13 04:39 → 6EST 10-13 07:17
PROVIDERS: ADMIT Internal Medicine; ATTEND Internal Medicine
DX: N17.9 Acute kidney failure, unspecified (principal); N39.0 Urinary tract infection, site not specified; G93.40 Encephalopathy, unspecified; G20 Parkinson's disease; F02.80 Dementia in other diseases classified elsewhere, unspecified severity, without behavioral disturbance, psychotic disturbance, mood disturbance, and anxiety; G30.9 Alzheimer's disease, unspecified; I10 Essential (primary) hypertension; D64.9 Anemia, unspecified; E86.0 Dehydration; N40.0 Benign prostatic hyperplasia without lower urinary tract symptoms; Z96.619 Presence of unspecified artificial shoulder joint; Z96.659 Presence of unspecified artificial knee joint; Z79.899 Other long term (current) drug therapy; Z79.82 Long term (current) use of aspirin
CPT/HCPCS: 36415; 80053; 81003; 83735; 85025; 87077; 87186; 96365; 97162; 99285; C1893; J0696; J1650